=== PATIENT | female | born 2000 | race Caucasian/White ===

== ENCOUNTER 2024-09-02 15:43 | Emergency (ER) | payer OTHER, MEDICAID ==
[~2024-09-02] VITALS: Ht 160 cm; Wt 47.6 kg
[2024-09-02] MEDS ORDERED: LIDO30AD10 TP (16:33)
[2024-09-02] MEDS ORDERED: CYCL5TAB PO (16:33)
[2024-09-02] MEDS ORDERED: IBUP-1955 PO (16:33)
[2024-09-02] MEDS ORDERED: LIDOCAINE 5% PATCH TD ONE (16:36)
[2024-09-02] MEDS ORDERED: ACETAMINOPHEN 500 MG TABLET ONE (16:36)
[2024-09-02] MEDS ORDERED: KETOROLAC TROMETHAMINE 15 MG INJ ONE (16:36)
[2024-09-02] MEDS: ACETAMINOPHEN 500 MG TABLET PO ONE (16:44)
[2024-09-02] MEDS: KETOROLAC TROMETHAMINE 15 MG INJ IM ONE (16:44)
[2024-09-02] MEDS: LIDOCAINE 5% PATCH TD ONE (16:44)
[2024-09-02 18:01] VITALS: BP 106/52; TEMP 98.9; O2SAT 99
== END 2024-09-02 18:02 | disposition home or self-care (01) ==
LOC: ER 15:56
DX: M54.50 Low back pain, unspecified (principal); R07.89 Other chest pain; M54.6 Pain in thoracic spine; Z60.2 Problems related to living alone; V43.52XA Car driver injured in collision with other type car in traffic accident, initial encounter; Y93.89 Activity, other specified; Y92.488 Other paved roadways as the place of occurrence of the external cause; Y99.8 Other external cause status
CPT/HCPCS: 99284; 71101; 72072; 72100; 96372; J1885; A4606; A4663; A9150